=== PATIENT | female | born 1995 | race Caucasian/White ===

== ENCOUNTER → 2021-09-18 10:16 | Outpatient (CLI) | payer OTHER, BC, SELFPAY ==
--- NOTE | ~2021-09-18 | US_ITS ---
EXAMINATION: US breast BI complete HISTORY: Palpable mass in the upper outer quadrant of the right breast TECHNIQUE: Complete bilateral breast ultrasound is performed including all four quadrants and the sub areolar aspects of both breasts. FINDINGS: There is a 1.9 x 1.1 cm oval, circumscribed, parallel, hypoechoic mass with minimal vascula rity and no posterior features at the 10:00 location 6 cm from the nipple corresponding to the palpab le abnormality of concern. No additional sonographically detected mass is identified in either breast . IMPRESSION: Probable fibroadenoma right breast corresponding to the palpable abnormality of concern. Recommend co ntinued clinical follow-up and targeted right breast ultrasound in six months. BI-RADS category 3, probably benign findings. Reviewed, dictated and finalized at location [facility]. IMPRESSION: Probable fibroadenoma right breast corresponding to the palpable abnormality of concern. Recommend continued clinical follow-up and targeted right breast ultr asound in six months. BI-RADS category 3, probably benign findings.
== END ==
PROVIDERS: PCP Nurse Practitioner; Visit Provider Nurse Practitioner
DX: R92.8 Other abnormal and inconclusive findings on diagnostic imaging of breast (principal)
CPT/HCPCS: 76641

== ENCOUNTER 2023-05-19 09:54 | Outpatient (CLI) | payer BC, SELFPAY ==
--- NOTE | ~2023-05-19 | US_ITS ---
US breast RT limited DATE: 05/19/2023 10:14 INDICATION: Follow-up of right 10:00 breast lump TECHNIQUE: Real-time imaging targeted at 10:00 6 cm from nipple COMPARISON: 09/18/2021 bilateral complete breast ultrasound examination FINDINGS: Again noted at 10:00 6 cm from the nipple is a parallel circumscribed hypoechoic solid mass lesion measuring 1.9 x 0.9 x 1.9 mm dimension, not significantly change since 09/18/2021. There is no posterior shadowing. This most likely a benign fibroadenoma. IMPRESSION: BI-RADS Category 2: Benign. Stable probable fibroadenoma at 10:00 6 cm from nipple Reviewed, dictated and finalized at [facility]. Reviewed, dictated and finalized at location [facility].
== END 2023-05-19 09:55 ==
PROVIDERS: PCP Nurse Practitioner; Visit Provider Nurse Practitioner
DX: N63.10 Unspecified lump in the right breast, unspecified quadrant (principal)
CPT/HCPCS: 76642

== ENCOUNTER 2025-01-20 10:14 | Outpatient (CLI) | payer BC, SELFPAY ==
--- NOTE | ~2025-01-20 | US_ITS ---
EXAM/PROCEDURE: US OB transvaginal HISTORY: Bleeding in early COMPARISON: None available. TECHNIQUE: Directed examination for evaluating viability. FINDINGS: A gestational and yolk sac appear to be present within the endometrial canal. No pole or heart rate is documented on this exam. EGA by dates 7 weeks 3 days EDC by dates: September 05, 2025 The uterus and endometrial canal otherwise appear normal. Right ovary appears normal in echotexture and size. Left ovary is not seen. No free fluid seen. IMPRESSION: Probable intrauterine gestation with no pole identified. Correlate with follow-up quantitative hCG levels and repeat ultrasound in 7-10 days or sooner if clinically appropriate. Reviewed, dictated and finalized at location A. [employer] IMPRESSION: Probable intrauterine gestation with no pole identified. Lyudmila elate with follow-up quantitative hCG levels and repeat ultrasound in 7-10 days or sooner if clinically appropriate.
== END 2025-01-20 10:15 | disposition home or self-care (01) ==
PROVIDERS: PCP Obstetrics & Gynecology; Visit Provider Obstetrics & Gynecology
DX: O20.9 Hemorrhage in early pregnancy, unspecified (principal); Z3A.00 Weeks of gestation of pregnancy not specified
CPT/HCPCS: 76817